=== PATIENT | male | born 1995 | race Caucasian/White ===

== ENCOUNTER 2021-02-10 03:40 | Emergency (ER) | payer OTHER ==
[~2021-02-10 03:40] MED LIST: NORCO 5-325 TA1 EACH PO
[2021-02-10] MEDS ORDERED: IBUPROFEN800 MG PO (07:06)
[2021-02-10] MEDS ORDERED: NORCO 5-325 TA1 EACH PO (07:06)
== END 2021-02-10 08:11 | disposition home or self-care (01) ==
LOC: FER 03:40
DX: S62.111A Displaced fracture of triquetrum [cuneiform] bone, right wrist, initial encounter for closed fracture (principal); V00.131A Fall from skateboard, initial encounter; Y93.51 Activity, roller skating (inline) and skateboarding; Y92.410 Unspecified street and highway as the place of occurrence of the external cause
CPT/HCPCS: 73090; 73110; 73130; J1885; J2270; J2405